=== PATIENT | male | born 1930 | race Caucasian/White ===

== ENCOUNTER 2016-11-15 21:10 | Emergency (ER) | payer MEDICARE, OTHER ==
[~2016-11-15] VITALS: Ht 167.6 cm; Wt 72.6 kg
[2016-11-15] MEDS ORDERED: TDAP DIPH,PERTUSS,TET VAC/PF 0.5 ML DISP.SYRIN IM ONE ×2 (21:45→22:06)
[2016-11-15] MEDS ORDERED: METRONIDAZOLE 500 MG TABLET PO ONE (21:45)
[2016-11-15] MEDS ORDERED: LEVOFLOXACIN 750 MG TABLET PO ONE (21:45)
[2016-11-15] MEDS ORDERED: METRONIDAZOLE 500 MG TABLET ONE (22:05)
[2016-11-15] MEDS ORDERED: LEVOFLOXACIN 750 MG TABLET ONE (22:05)
--- NOTE | 2016-11-15 22:06 | NUR ---
Patient discharged to home in stable conditon. Written and verbal after care instructions given. Patient verbalizes understanding of instructions.
== END 2016-11-15 22:07 | disposition home or self-care (01) ==
LOC: ER 21:12
DX: S61.451A Open bite of right hand, initial encounter (principal); I10 Essential (primary) hypertension; I25.10 Atherosclerotic heart disease of native coronary artery without angina pectoris; F03.90 Unspecified dementia, unspecified severity, without behavioral disturbance, psychotic disturbance, mood disturbance, and anxiety; Z95.5 Presence of coronary angioplasty implant and graft; W54.0XXA Bitten by dog, initial encounter; Y93.89 Activity, other specified; Y92.9 Unspecified place or not applicable; Y99.9 Unspecified external cause status
CPT/HCPCS: 90715; A4663